=== PATIENT | female | born 1945 ===

== ENCOUNTER 2018-08-23 03:39 | Observation (INO) | payer MEDICARE, OTHER ==
--- NOTE | 2018-08-23 04:30 | ED PDOC ---
HPI: Chest Pain Time Seen by Provider: 08/23/18 04:00 Chief Complaint (Nursing): Chest Pain Chief Complaint (Provider): Chest Pain History Per: Patient History/Exam Limitations: no limitations Onset/Duration Of Symptoms: Hrs (02:00 today) Current Symptoms Are (Timing): Still Present Associated Symptoms: denies: Diaphoresis Additional Complaint(s): Adelaida Holman is a 73 year old female, with a past medical history of HTN, hypercholesterolemia, hypothyroidism and osteoporosis, who presents to the emergency department accompanied by daughter complaining of chest pain, upper back pain and left arm pain onset since 02:00 today. Daughter states patient woke up in the middle of the night complaining of pain. Patient denies any fever, chills, sweats or other medical complaints. PMD: [facility] - Cardio Past Medical History Reviewed: Historical Data, Nursing Documentation, Vital Signs Vital Signs: Last Vital Signs Temp 97.6 F 08/23/18 03:56 Pulse 138 H 08/23/18 03:56 Resp 16 08/23/18 03:56 BP 116/58 L 08/23/18 03:56 Pulse Ox 90 L 08/23/18 03:56 - Medical History PMH: HTN, Hypercholesterolemia, Hypothyroidism, Osteoporosis Denies: Chronic Kidney Disease - Surgical History Other surgeries: bypass - Family History Family History: States: Unknown Family Hx - Social History Current smoker - smoking cessation education provided: No Alcohol: None Drugs: Denies - Home Medications Home Medications: Ambulatory Orders Medication Instructions Recorded Atorvastatin [Lipitor] 10 mg PO DAILY 08/23/18 Levothyroxine [Synthroid] 75 mg PO DAILY 08/23/18 RX: Furosemide [Lasix] 20 mg PO DAILY 08/23/18 RX: Losartan Potassium [Cozaar] 100 mg PO DAILY 08/23/18 RX: amLODIPine [Norvasc] 5 mg PO DAILY 08/23/18 - Allergies Allergies/Adverse Reactions: Allergies Allergy/AdvReac Type Severity Reaction Status Date / Time No Known Allergies Allergy Verified 07/03/16 12:15 Review of Systems ROS Statement: Except As Marked, All Systems Reviewed And Found Negative Constitutional: Negative for: Fever, Chills, Sweats Cardiovascular: Positive for: Chest Pain Musculoskeletal: Positive for: Arm Pain (left), Back Pain (upper) Physical Exam - Reviewed Nursing Documentation Reviewed: Yes Vital Signs Reviewed: Yes - Physical Exam Appears: Positive for: No Acute Distress Head Exam: Positive for: ATRAUMATIC, NORMAL INSPECTION, NORMOCEPHALIC Skin: Positive for: Normal Color, Warm, Dry Eye Exam: Positive for: Normal appearance, EOMI, PERRL Neck: Positive for: Normal, Painless ROM Cardiovascular/Chest: Positive for: Regular Rate, Rhythm. Negative for: Murmur Respiratory: Positive for: Normal Breath Sounds. Negative for: Respiratory Distress Gastrointestinal/Abdominal: Positive for: Normal Exam, Soft. Negative for: Tenderness Back: Positive for: Normal Inspection. Negative for: L CVA Tenderness, R CVA Tenderness, Vertebral Tenderness Extremity: Positive for: Normal ROM (upper and lower extremities), Swelling (Slight trace edema to bilateral lower extremities). Negative for: Calf Tenderness, Deformity Neurologic/Psych: Positive for: Alert, Oriented. Negative for: Motor/Sensory Deficits - Laboratory Results Result Diagrams: 08/23/18 04:40 08/23/18 04:40 - ECG O2 Sat by Pulse Oximetry: 90 (RA) Pulse Ox Interpretation: Abnormal Medical Decision Making Medical Decision Making: Time: 04:12 Initial Impression: Chest pain rule out ACS Initial Plan: --CMP --Troponin I --CBC w/ differential --Cardizem 10 mg IVP --Reevaluation EKG shows LBBB with A-fib. Reviewed previous EKG done in 2016 that also showed a LBBB present. 06:35 -Discussed case with Dr. Sutton who was made aware and pt. will be admitted. consult placed for Dr Holman, pts bobbin dumper 07:00 -Repeat EKG shows A-fib with RVR @ 108bpm. Patient feels improved. ----- Scribe Attestation: Documented by Cedric Londono, acting as a scribe for Joseph Gong MD. Provider Scribe Attestation: All medical record entries made by the Scribe were at my direction and personally dictated by me. I have reviewed the chart and agree that the record accurately reflects my personal performance of the history, physical exam, medical decision making, and the department course for this patient. I have also personally directed, reviewed, and agree with the discharge instructions and disposition. Disposition - Clinical Impression Clinical Impression: Acute chest pain, Atrial fibrillation - Patient ED Disposition Is Patient to be Admitted: Yes Counseled Patient/Family Regarding: Studies Performed, Diagnosis - Disposition Disposition Time: 06:30 Condition: GUARDED
[2018-08-23 04:50] LABS: BASO # 0.1 K/uL (0.0-0.2); BASO % 1.1 % (0.0-2.0); EOS # 0.3 K/uL (0.0-0.7); HEMOGLOBIN 14.8 g/dL (12.0-16.0); LYMPH # 2.6 K/uL (1.0-4.3); LYMPH % 38.2 % (20.0-40.0); MEAN CELL VOLUME 80.5 fl (81.0-99.0); MEAN CORPUSCULAR HEMOGLOBIN 26.3 pg (27.0-31.0); MEAN CORPUSCULAR HGB CONC 32.7 g/dL (33.0-37.0); MEAN PLATELET VOLUME 9.2 fl (7.2-11.7); MONO # 0.4 K/uL (0.0-0.8); MONO % 6.6 % (0.0-10.0); NEUT # 3.3 K/uL (1.8-7.0); NEUT % 49.1 % (50.0-75.0); NRBC % 0.1 % (0.0-0.0); RBC 5.61 Mil/uL (3.80-5.20); RED CELL DISTRIBUTION WIDTH 14.1 % (11.5-14.5); WHITE BLOOD COUNT 6.7 K/uL (4.8-10.8)
[2018-08-23 05:02] LABS: ALB/GLOB RATIO 1.1 (1.0-2.1); ALBUMIN 4.5 g/dL (3.5-5.0); ALT/SGPT 28 U/L (9-52); AST/SGOT 26 U/L (14-36); BLOOD UREA NITROGEN 15 mg/dl (7-17); CALCIUM 9.6 mg/dL (8.4-10.2); GFR NON-AFRICAN AMERICAN > 60
--- NOTE | 2018-08-23 08:27 | RAD ---
Date of service: 08/23/2018 HISTORY: chest pain COMPARISON: Chest radiographs 07/03/2016. TECHNIQUE: Chest PA and lateral FINDINGS: LUNGS: No active pulmonary disease. PLEURA: No significant pleural effusion identified. No pneumothorax apparent. CARDIOVASCULAR: Calcific atherosclerotic changes are seen related to the thoracic aorta. Stable cardiomegaly. Borderline pulmonary vascular congestion. OSSEOUS STRUCTURES: Sternotomy wires reiterated. VISUALIZED UPPER ABDOMEN: Normal. OTHER FINDINGS: None. IMPRESSION: Borderline pulmonary vascular congestion. Stable cardiomegaly. No acute airspace disease bilaterally.
[2018-08-23] MEDS: Levothyroxine 100 MCG TAB PO SCH (08:56)
[2018-08-23] MEDS ORDERED: Digoxin 250 mcg (0.25 mg) Tab PO ONE ×2 (10:52→13:00)
--- NOTE | 2018-08-23 11:10 | CP.PCM.CON ---
History of Present Illness - History of Present Illness History of Present Illness: THE PATIENT IS A 73 YEAR OLD FEMALE WITH A HISTORY OF HYPERTENSION, HYPERLIPIDEMIA AND HYPOTHYROISISM. 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 SHE SEES DR [facility] AND HAD A STRESS TEST ABOUT 6 MONTHS AGO AND AND ECHOCARDIOGRAM ABOUT 6 MONTHS AGO ALSO. SHE NOW STATES THAT EARLY THIS MORNING SHE WOKE UP TO A RAPID AND IRREGULAR HEART BEATING SENSATION AND THIS PROMPTED HER TO GO TO THE ER. I WAS ASKED TO SEE HER BY [facility] THEY WOULD NOT BE ABLE TO BE IN TODAY AND THE PATIENT AND DAUGHTER STATED THAT THAT WAS FINE WITH THEM. THE ER PHYSICIAN WROTE THAT SHE HAD CHEST PAIN BUT UPON DETAILED QUESTIONING SHE STATES THAT IT WAS A RAPID BEATING SENSATION AND SHE ALSO FELT WHAT APPEARED TO BY A "GAS" SENSATION ALONG HER LEFT LATERAL CHEST AND HER LEFT SHOULDER BUT THAT IT IS GONE NOW. SHE DENIES ANY TYPICAL CHEST PAIN. SHE WAS GIVEN 10 MGS OF IV CARDIZEM BY THE ER PHYSICIAN AND STATES IT SLOWED HER RAPID BEATING SENSATION BUT ONLY BRIEFLY. Past Patient History - Past Social History Alcohol: None Drugs: Denies - CARDIAC Hx Hypercholesterolemia: Yes Hx Hypertension: Yes - PULMONARY Hx Respiratory Disorders: No - NEUROLOGICAL Hx Neurological Disorder: No - HEENT Hx HEENT Problems: No - RENAL Hx Chronic Kidney Disease: No - ENDOCRINE/METABOLIC Hx Hypothyroidism: Yes - HEMATOLOGICAL/ONCOLOGICAL Hx Blood Disorders: No - MUSCULOSKELETAL/RHEUMATOLOGICAL Hx Osteoporosis: Yes - PSYCHIATRIC Hx Substance Use: No - SURGICAL HISTORY Hx Surgeries: Yes Hx Cardiac Catheterization: Yes - ANESTHESIA Hx Anesthesia: Yes Hx Anesthesia Reactions: No Hx Malignant Hyperthermia: No Meds Allergies/Adverse Reactions: Allergies Allergy/AdvReac Type Severity Reaction Status Date / Time No Known Allergies Allergy Verified 07/03/16 12:15 - Medications Medications: Current Medications Enoxaparin Sodium (Lovenox) 70 mg SC Q12 [facility] Levothyroxine Sodium (Synthroid) 100 mcg PO DAILY@0630 [facility] Last Admin: 08/23/18 08:56 Dose: 100 mcg Physical Exam - Respiratory Exam Respiratory Exam: Clear to Auscultation Bilateral - Cardiovascular Exam Cardiovascular Exam: Tachycardia, Irregular Rhythm, +S1, +S2 - Extremities Exam Additional comments: NO LE EDEMA - Additional Findings Additional findings: EKG 2015 NSR, LBBB EKGS TODAY SHOW ATRIAL FIBRILLATION WITH RVR AND A LBBB TROPONIN IS NORMAL Results - Vital Signs Recent Vital Signs: Last Vital Signs Temp 98 F 08/23/18 09:01 Pulse 104 H 08/23/18 09:01 Resp 20 08/23/18 09:01 BP 137/80 08/23/18 09:01 Pulse Ox 98 08/23/18 09:01 - Labs Result Diagrams: 08/23/18 04:40 08/23/18 04:40 Labs: Laboratory Results - last 24 hr 08/23/18 08/23/18 04:40 04:40 WBC 6.7 RBC 5.61 H Hgb 14.8 Hct 45.1 MCV 80.5 L MCH 26.3 L MCHC 32.7 L RDW 14.1 Plt Count 201 MPV 9.2 Neut % (Auto) 49.1 L Lymph % (Auto) 38.2 [place] % (Auto) 6.6 Eos % (Auto) 5.0 H Baso % (Auto) 1.1 Neut # (Auto) 3.3 Lymph # (Auto) 2.6 [place] # (Auto) 0.4 Eos # (Auto) 0.3 Baso # (Auto) 0.1 Sodium 145 Potassium 3.6 Chloride 111 H Carbon Dioxide 25 Anion Gap 13 BUN 15 Creatinine 0.6 L Est GFR ( Amer) > 60 Est GFR (Non-Af Amer) > 60 Random Glucose 131 H Calcium 9.6 Total Bilirubin 0.6 AST 26 ALT 28 Alkaline Phosphatase 149 H Troponin I < 0.0120 Total Protein 8.4 H Albumin 4.5 Globulin 3.9 Albumin/Globulin Ratio 1.1 Assessment & Plan - Assessment and Plan (Free Text) Assessment: [place] ATRIAL FIBRILLATION HYPERTENSION HYPOTHYROIDISM 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
[2018-08-23 11:41] LABS: PROTHROMBIN TIME 11.2 Seconds (9.8-13.1)
[2018-08-23] MEDS: Enoxaparin 80 mg Syringe SC SCH ×2 (11:56→22:04)
[2018-08-23 13:02] LABS: TROPONIN I 0.03 ng/mL (0.00-0.120)
[2018-08-23] MEDS: Latanoprost 0.005% Opht SOUTION OU SCH (22:05)
[2018-08-24 05:27] LABS: HDL CHOLESTEROL 31 MG/DL (30-70)
[2018-08-24 05:38] LABS: LDL CHOLESTEROL 114 mg/dL (0-129)
[2018-08-24] MEDS: Levothyroxine 100 MCG TAB PO SCH (06:52)
--- NOTE | 2018-08-24 06:54 | CARD ---
APPROVED REPORT Date of service: 08/23/2018 EKG Measurement Heart [id number] <Conclusion> Normal sinus rhythm Left bundle branch block Abnormal ECG
--- NOTE | 2018-08-24 07:10 | CP.PCM.HP ---
History of Present Illness - History of Present Illness History of Present Illness: This is a 73 y/o female admitted for rapid palpitation and noted to be in rapid atrial fibrillation. She has a hx of HTN hypothyroidism hyperlipidemia and osteoporosis and recurrent palpitations and follows up with Dr Holman however never informed the Parts [employer] of her recurrent palpitations. She is currently on Losartan Lasix amlodipine atorvastatin and levothyroxine. She claims to have a remote cardiac surgery for a congenital cardiac defect. Otherwise she has been stable and compliant with her medications. She was noted to be in rapid atrial fibrillatio and respoded very well ton IV Cardizem. n Present on Admission - Present on Admission Any Indicators Present on Admission: No History of DVT/PE: No History of Uncontrolled Diabetes: No Urinary Catheter: No Decubitus Ulcer Present: No Review of Systems - Cardiovascular Cardiovascular: Chest Pain at Rest, Irregular Heart Rhythm - Respiratory Respiratory: Dyspnea Past Patient History - Past Medical History & Family History Past Medical History?: Yes - Past Social History Smoking Status: Never Smoked - CARDIAC Hx Hypercholesterolemia: Yes Hx Hypertension: Yes - PULMONARY Hx Respiratory Disorders: No - NEUROLOGICAL Hx Neurological Disorder: No - HEENT Hx HEENT Problems: No - RENAL Hx Chronic Kidney Disease: No - ENDOCRINE/METABOLIC Hx Hypothyroidism: Yes - HEMATOLOGICAL/ONCOLOGICAL Hx Blood Disorders: No - INTEGUMENTARY Hx Dermatological Problems: No - MUSCULOSKELETAL/RHEUMATOLOGICAL Hx Musculoskeletal Disorders: No - GASTROINTESTINAL Hx Gastrointestinal Disorders: No - GENITOURINARY/GYNECOLOGICAL Hx Genitourinary Disorders: No - PSYCHIATRIC Hx Substance Use: No - SURGICAL HISTORY Hx Surgeries: Yes Hx Cardiac Catheterization: Yes Other/Comment: Open Heart Surgery to repair congenital anomaly - ANESTHESIA Hx Anesthesia: Yes Hx Anesthesia Reactions: No Hx Malignant Hyperthermia: No Meds Allergies/Adverse Reactions: Allergies Allergy/AdvReac Type Severity Reaction Status Date / Time No Known Allergies Allergy Verified 07/03/16 12:15 Physical Exam - Head Exam Head Exam: NORMAL INSPECTION - Eye Exam Eye Exam: Normal appearance - ENT Exam ENT Exam: Mucous Membranes Moist - Respiratory Exam Respiratory Exam: Clear to Auscultation Bilateral - Cardiovascular Exam Cardiovascular Exam: Irregular Rhythm - GI/Abdominal Exam GI & Abdominal Exam: Normal Bowel Sounds - Neurological Exam Neurological exam: CN II-XII Intact, Oriented x3 Results - Vital Signs Recent Vital Signs: Last Vital Signs Temp 98.9 F 08/24/18 05:27 Pulse 77 08/24/18 05:27 Resp 18 08/24/18 05:27 BP 132/85 08/24/18 05:27 Pulse Ox 98 08/24/18 05:27 - Labs Result Diagrams: 08/23/18 04:40 08/23/18 04:40 Labs: Laboratory Results - last 24 hr 08/23/18 08/23/18 08/23/18 04:40 11:15 12:32 PT 11.2 INR 1.0 APTT 34.0 Sodium 145 Potassium 3.6 Chloride 111 H Carbon Dioxide 25 Anion Gap 13 BUN 15 Creatinine 0.6 L Est GFR ( Amer) > 60 Est GFR (Non-Af Amer) > 60 Random Glucose 131 H Calcium 9.6 Total Bilirubin 0.6 AST 26 ALT 28 Alkaline Phosphatase 149 H Troponin I < 0.0120 0.0300 Total Protein 8.4 H Albumin 4.5 Globulin 3.9 Albumin/Globulin Ratio 1.1 Triglycerides Cholesterol LDL Cholesterol Direct HDL Cholesterol TSH 3rd Generation 2.45 2.16 Digoxin 08/23/18 08/24/18 08/24/18 19:36 04:55 04:55 PT INR APTT Sodium Potassium Chloride Carbon Dioxide Anion Gap BUN Creatinine Est GFR ( Amer) Est GFR (Non-Af Amer) Random Glucose Calcium Total Bilirubin AST ALT Alkaline Phosphatase Troponin I 0.0350 Total Protein Albumin Globulin Albumin/Globulin Ratio Triglycerides 172 H Cholesterol 172 LDL Cholesterol Direct 114 HDL Cholesterol 31 TSH 3rd Generation Digoxin 0.7 L Assessment & Plan (1) Atrial fibrillation Status: Acute (2) Chest pain Status: Acute (3) Hypertension Status: Acute (4) Hyperlipidemia Status: Acute (5) Paroxysmal atrial fibrillation Status: Acute - Assessment and Plan (Free Text) Plan: Cont meds Cont tx Cont monitor telemetry cardiology eval ECHO Discussed with primary [employer] Dr Mcgarry will start with [place] will switch amlodipine with B carlie
[2018-08-24] MEDS ORDERED: Levothyroxine 75 MCG TAB PO SCH (09:00)
[2018-08-24] MEDS: Enoxaparin 80 mg Syringe SC SCH (09:16)
--- NOTE | 2018-08-24 11:50 | CP.PCM.PN ---
Subjective - Date & Time of Evaluation Date of Evaluation: 08/24/18 Time of Evaluation: 11:30 - Subjective Subjective: NO CHEST PAIN OR SOB NO FURTHER PALPITATIONS Objective - Vital Signs/Intake and Output Vital Signs (last 24 hours): Temp Pulse Resp BP Pulse Ox 97.9 F 57 L 20 146/62 94 L 08/24/18 09:24 08/24/18 09:24 08/24/18 09:24 08/24/18 09:24 08/24/18 09:24 - Medications Medications: Current Medications Amlodipine Besylate (Norvasc) 5 mg PO DAILY [facility] Atorvastatin Calcium (Lipitor) 10 mg PO DAILY [facility] Last Admin: 08/24/18 09:17 Dose: 10 mg Atorvastatin Calcium (Lipitor) 10 mg PO DAILY [facility] Last Admin: 08/24/18 09:17 Dose: Not Given Enoxaparin Sodium (Lovenox) 70 mg SC Q12 [facility] Last Admin: 08/24/18 09:16 Dose: 70 mg Furosemide (Lasix) 20 mg PO DAILY [facility] Last Admin: 08/24/18 09:17 Dose: 20 mg Latanoprost (Xalatan Opht) 1 drop OU HS [facility] Last Admin: 08/23/18 22:05 Dose: 1 drop Levothyroxine Sodium (Synthroid) 100 mcg PO DAILY@0630 [facility] Last Admin: 08/24/18 06:52 Dose: 100 mcg Losartan Potassium (Cozaar) 100 mg PO DAILY [facility] Last Admin: 08/24/18 09:16 Dose: 100 mg - Labs Labs: 08/23/18 04:40 08/23/18 04:40 PT 11.2 Seconds (9.8-13.1) 08/23/18 11:15 INR 1.0 08/23/18 11:15 APTT 34.0 Seconds (25.6-37.1) 08/23/18 11:15 - Respiratory Exam Respiratory Exam: Clear to Ausculation Bilateral - Cardiovascular Exam Cardiovascular Exam: REGULAR RHYTHM, +S1, +S2, Murmur - Extremities Exam Extremities Exam: Normal Inspection - Additional Findings Additional findings: EKG THIS AM NSR, LBBB DIG LEVEL 0.7 ECHO CONCENTRIC LVH, AV CALCIFICATION WITH MODERATE TO SEVERE AR, MILD MR, MILD TR, NO ASD SEEN(MY UNOFFICIAL READING) Assessment and Plan - Assessment and Plan (Free Text) Assessment: S/P ATRIAL FIBRILLATION-NOW IN NSR HYPERTENSION HYPERLIPIDEMIA PRIOR OHS Plan: CONTINUE DIGOXIN, LOSARTAN, FUROSEMIDE LOWER LOVENOX TO 40 MGS DAILY AND ADD ASA 325 MGS DAILY WILL STOP AMLODIPINE AND BEGIN A BETA AMBREEN FOR BOTH HYPERTENSION AND TO TRY TO KEEP IN NSR I SPOKE TO DR CAMPBELL AGAIN TODAY AND ASKED HIM ABOUT HER PRIOR OHS, ?HOLE IN THE HEART, AND ABOUT HER AR-HE WILL REVIEW HER CHART AND LET ME KNOW I WOULD KEEP HER IN THE HOSPITAL AT LEAST ONE MORE NIGHT TO MAKE SURE SHE STAYS IN SINUS RHYTHM
[2018-08-24] MEDS: Aspirin 325 mg EC Tablets PO SCH (13:35)
[2018-08-24] MEDS: Digoxin 250 mcg (0.25 mg) Tab PO SCH (18:24)
--- NOTE | 2018-08-24 20:17 | CARD ---
APPROVED REPORT Date of service: 08/24/2018 EXAM: Two-dimensional and M-mode echocardiogram with Doppler and color Doppler. Other Information Quality : GoodRhythm : NSR INDICATION Atrial Fibrillation Surgery/Intervention CABD DIMENSIONS IVSd1.47 (0.7-1.1cm)LVDd5.11 (3.9-5.9cm) LVOT Diameter2.28 (1.8-2.4cm)PWd1.49 (0.7-1.1cm) IVSs2.13 (0.8-1.2cm)LVDs2.94 (2.5-4.0cm) FS (%) 42.4 %PWs1.95 (0.8-1.2cm) M-Mode DIMENSIONS Left Atrium (MM)3.62 (2.5-4.0cm)IVSd1.47 (0.7-1.1cm) Aortic Root3.74 (2.2-3.7cm)LVDd5.47 (4.0-5.6cm) Aortic Cusp Exc.2.03 (1.5-2.0cm)PWd1.29 (0.7-1.1cm) IVSs2.44 cmFS (%) 63 % LVDs2.03 (2.0-3.8cm)PWs2.15 cm Aortic Valve AoV Peak Szwfmazw924.6cm/sAoV VTI84.5cmAO Peak GR.63mmHg LVOT Peak Asecbdri216.2cm/sLVOT VTI42.16cmAO Mean GR.38mmHg MARQUES (VMAX)1.54tz0CKL (VTI)1.94iu9KU P 1/2 Tyuj306po Mitral Valve MV E Cflbyszk88.2cm/sMV DECEL [id number] A Xhzxhpnw519.0cm/s MV JSM65buM/A ratio0.5MVA (PHT)2.91cm2 TDI Lateral E' Peak V7.82cm/sMedial E' Peak V3.10cm/sE/Lateral E'7.1 E/Medial E'17.8 Tricuspid Valve TR Peak Xujlpfsz608xm/sRAP NPSWIEYC52gkPjFI Peak Gr.31mmHg WGWJ96iuHe LEFT VENTRICLE The left ventricle is normal size. There is mild concentric left ventricular hypertrophy. The left ventricular systolic function is normal. The estimated ejection fraction is 60-65% No regional wall motion abnormalities noted.. Transmitral Doppler flow pattern is Grade I-abnormal relaxation pattern. No left ventricle thrombus noted on this study. There is no ventricular septal defect visualized. There is no left ventricular aneurysm. There is no mass noted in the left ventricle. RIGHT VENTRICLE The right ventricle is normal size. There is normal right ventricular wall thickness. The right ventricular systolic function is normal. ATRIA The left atrium is mildly dilated. The right atrium size is normal. The interatrial septum is intact with no evidence for an atrial septal defect. AORTIC VALVE The aortic valve is normal in structure. Moderate aortic regurgitation is present. There is mild aortic valvular stenosis. There is no aortic valvular vegetation. MITRAL VALVE The mitral valve is normal in structure. There is no evidence of mitral valve prolapse. There is no mitral valve stenosis. There is mild mitral valve regurgitation noted. TRICUSPID VALVE The tricuspid valve is normal in structure. There is mild tricuspid valve regurgitation noted. RVSP is calculated at 41 mm Hg. There is no tricuspid valve prolapse or vegetation. There is no tricuspid valve stenosis. PULMONIC VALVE The pulmonary valve is normal in structure. There is no pulmonic valvular regurgitation. There is no pulmonic valvular stenosis. GREAT VESSELS The aortic root is normal in size. The ascending aorta is normal in size. The pulmonary artery is normal. The IVC is normal in size and collapses >50% with inspiration. PERICARDIAL EFFUSION There is no pericardial effusion. There is no pleural effusion. <Conclusion> There is mild concentric left ventricular hypertrophy. The estimated ejection fraction is 60-65% Transmitral Doppler flow pattern is Grade I-abnormal relaxation pattern. Moderate aortic regurgitation is present. There is mild aortic valvular stenosis. There is mild mitral valve regurgitation noted. There is mild tricuspid valve regurgitation noted. RVSP is calculated at 41 mm Hg.
[2018-08-24] MEDS: Latanoprost 0.005% Opht SOUTION OU SCH (21:57)
[2018-08-25 05:10] VITALS: RESP 20
[2018-08-25] MEDS: Levothyroxine 100 MCG TAB PO SCH (06:10)
[2018-08-25] MEDS ORDERED: Enoxaparin 40 mg Syringe SC SCH (09:00)
--- NOTE | 2018-08-25 09:14 | CP.PCM.PN ---
Subjective - Date & Time of Evaluation Date of Evaluation: 08/25/18 Time of Evaluation: 09:00 - Subjective Subjective: NO CHEST PAIN, PALPITATIONS OR SOB Objective - Vital Signs/Intake and Output Vital Signs (last 24 hours): Temp Pulse Resp BP Pulse Ox 97.9 F 77 20 136/70 94 L 08/25/18 08:15 08/25/18 08:15 08/25/18 08:15 08/25/18 08:15 08/25/18 08:15 - Medications Medications: Current Medications Aspirin (Ecotrin) 325 mg PO DAILY [facility] Last Admin: 08/24/18 13:35 Dose: 325 mg Atorvastatin Calcium (Lipitor) 10 mg PO DAILY [facility] Last Admin: 08/24/18 09:17 Dose: 10 mg Digoxin (Lanoxin) 0.25 mg PO DAILY [facility] Last Admin: 08/24/18 18:24 Dose: 0.25 mg Enoxaparin Sodium (Lovenox) 40 mg SC DAILY [facility]; Protocol Furosemide (Lasix) 20 mg PO DAILY [facility] Last Admin: 08/24/18 09:17 Dose: 20 mg Latanoprost (Xalatan Opht) 1 drop OU HS [facility] Last Admin: 08/24/18 21:57 Dose: 1 drop Levothyroxine Sodium (Synthroid) 100 mcg PO DAILY@0630 [facility] Last Admin: 08/25/18 06:10 Dose: 100 mcg Losartan Potassium (Cozaar) 100 mg PO DAILY [facility] Last Admin: 08/24/18 09:16 Dose: 100 mg Metoprolol Tartrate (Lopressor) 12.5 mg PO Q12 [facility] Last Admin: 08/24/18 21:55 Dose: 12.5 mg - Labs Labs: 08/23/18 04:40 08/23/18 04:40 PT 11.2 Seconds (9.8-13.1) 08/23/18 11:15 INR 1.0 08/23/18 11:15 APTT 34.0 Seconds (25.6-37.1) 08/23/18 11:15 - Respiratory Exam Respiratory Exam: Clear to Ausculation Bilateral - Cardiovascular Exam Cardiovascular Exam: REGULAR RHYTHM, +S1, +S2 - Extremities Exam Extremities Exam: Normal Inspection - Additional Findings Additional findings: [employer] NSR Assessment and Plan - Assessment and Plan (Free Text) Assessment: S/P ATRIAL FIBRILLATION HYPERTENSION HYPERLIPIDEMIA AORTIC REGURGITATION PRIOR OHS Plan: THE PATIENT WILL BE DISCHARGED TODAY CONTINUE DIGOXIN, METOPROLOL, LOSARTAN, ASPIRIN AND ATORVASTATIN THE PATIENT WILL SEE [facility] FOR CARDIAC FU
[2018-08-25] MEDS: Aspirin 325 mg EC Tablets PO SCH (09:22)
[2018-08-25] MEDS: Digoxin 250 mcg (0.25 mg) Tab PO SCH (09:23)
[2018-08-25 09:28] VITALS: PULSE 77
--- NOTE | 2018-08-25 11:30 | CP.PCM.PCO ---
Assessment & Plan - Assessment and Plan (Free Text) Assessment: pt. doing well this morning denies sob, cp, palpitations pt. cleared for discharge to home today by -recommendations to meds for discharge ( see reconciliation) , no anticoagulation at this time pt. is to f/u with in 1 week E rx for all meds provided
[2018-08-25 12:00] VITALS: BP 114/58; PULSE 55; TEMP 97.4; O2SAT 94
== END 2018-08-25 17:00 | disposition home or self-care (01) ==
LOC: H.ER 03:39 → H.ERHOLD 06:34 → H.TEL 08-24 01:18
PROVIDERS: ADMIT Family Medicine; ATTEND Family Medicine
DX: I48.0 Paroxysmal atrial fibrillation (principal); I10 Essential (primary) hypertension; E78.00 Pure hypercholesterolemia, unspecified; E03.9 Hypothyroidism, unspecified; M81.0 Age-related osteoporosis without current pathological fracture; E78.5 Hyperlipidemia, unspecified; I35.1 Nonrheumatic aortic (valve) insufficiency
CPT/HCPCS: 36415; 71046; 80053; 80061; 80162; 84443; 84484; 85025; 85610; 85730; 93005; 93306; 96372; 96374; 99285; G0378; J1650

== ENCOUNTER 2019-03-04 10:43 | Inpatient (IN) | payer OTHER ==
[2019-03-04 10:44] VITALS: PULSE 77
[2019-03-04 11:00] VITALS: BMI 31.3
--- NOTE | 2019-03-04 11:47 | ED PDOC ---
HPI: SOB/CHF/COPD Time Seen by Provider: 03/04/19 11:24 Chief Complaint (Nursing): Shortness Of Breath Chief Complaint (Provider): Dyspnea History Per: Patient History/Exam Limitations: no limitations Onset/Duration Of Symptoms: Days (yesterday evening) Additional Complaint(s): Pt. with dyspnea since yesterday. Also weakness in her legs. Has trouble sleeping laying down. No chest pain. Has pain to the epigastric and LUQ. No lower abd pain. No nausea, vomit, diarrhea, headaches, dizziness. No palpitations. Not on any blood thinners. No fever. No cough. Has had similar in the past. Past Medical History Reviewed: Nursing Documentation, Vital Signs Vital Signs: Last Vital Signs Temp 97.8 F 03/04/19 10:59 Pulse 85 03/04/19 10:59 Resp 16 03/04/19 10:59 BP 148/75 03/04/19 10:59 Pulse Ox 95 03/04/19 10:59 Primary Care Provider: Gisselle Hammond - Medical History PMH: Atrial Fibrillation, CHF, HTN, Hypercholesterolemia, Hypothyroidism, Osteoporosis Denies: HIV, Chronic Kidney Disease - Surgical History Other surgeries: open heart sugery for tissue removal - Family History Family History: States: Unknown Family Hx - Living Arrangements Living Arrangements: With Family - Home Medications Home Medications: Ambulatory Orders Medication Instructions Recorded Atorvastatin [Lipitor] 10 mg PO DAILY 08/23/18 Furosemide [Lasix] 20 mg PO DAILY 08/23/18 Losartan Potassium [Cozaar] 100 mg PO DAILY 08/23/18 Latanoprost 0.005% Opht [Xalatan 1 drop OU HS #1 bottle 08/25/18 Opht] Levothyroxine [Synthroid] 100 mcg PO DAILY@0630 #30 tab 08/25/18 Apixaban [Eliquis] 5 mg PO Q12 03/04/19 Diltiazem HCl [Diltiazem 24Hr ER] 180 mg PO DAILY 03/04/19 Timolol 0.5% Ophth [Timoptic 0.5% 1 drop BOTHEYES Q12 03/04/19 Ophth Soln] - Allergies Allergies/Adverse Reactions: Allergies Allergy/AdvReac Type Severity Reaction Status Date / Time No Known Allergies Allergy Verified 03/04/19 11:16 Review of Systems ROS Statement: Except As Marked, All Systems Reviewed And Found Negative Constitutional: Positive for: Weakness Cardiovascular: Positive for: Orthopnea Respiratory: Positive for: Shortness of Breath Gastrointestinal: Positive for: Abdominal Pain Neurological: Positive for: Weakness Physical Exam - Reviewed Nursing Documentation Reviewed: Yes Vital Signs Reviewed: Yes - Physical Exam Appears: Positive for: Uncomfortable Head Exam: Positive for: ATRAUMATIC, NORMAL INSPECTION, NORMOCEPHALIC Skin: Positive for: Normal Color, Warm, DRY Eye Exam: Positive for: EOMI, Normal appearance, PERRL ENT: Positive for: Normal ENT Inspection Neck: Positive for: Normal, Painless ROM, Supple Cardiovascular/Chest: Positive for: Irregularly Irregular Respiratory: Positive for: Decreased Breath Sounds, Other (coarse mild b/l). Negative for: Accessory Muscle Use Gastrointestinal/Abdominal: Positive for: Soft, Tenderness (epigastric and LUQ) Back: Positive for: Normal Inspection. Negative for: L CVA Tenderness, R CVA Tenderness Extremity: Positive for: Normal ROM. Negative for: Tenderness, Pedal Edema Neurological/Psych: Positive for: Awake, Alert, Normal Tone, enrollment specialist II-XII. Negative for: Motor/Sensory Deficits, Facial Droop - Laboratory Results Result Diagrams: 03/04/19 12:25 03/04/19 12:25 Interpretation Of Abn Labs: probnp elevation - ECG ECG: Positive for: Interpreted By Me, Viewed By Me Interpretation Of Abn EKG: afib similar to old O2 Sat by Pulse Oximetry: 95 Pulse Ox Interpretation: Normal - Radiology X-Ray: Interpreted by Me, Viewed By Me X-Ray Interpretation: Other (vascular congestion) - Progress ED Course And Treament: 1200: Stable. Continue meds. Getting better. 1326: Stable. AAOx3. Pain free. On eliquis so will hold ASA. Spoke with Dr. Sutton. Will admit. - Critical Care Total Time (In Min): 30 Documented Critical Care: Time excludes all time spent performint seperately billable procedures Disposition - Clinical Impression Clinical Impression: CHF exacerbation - Patient ED Disposition Is Patient to be Admitted: Yes Counseled Patient/Family Regarding: Studies Performed, Diagnosis - Disposition Disposition Time: 13:30 Condition: FAIR - Pt Status Changed To: Hospital Disposition Of: Inpatient - Admit Certification Admit to Inpatient:: After my assessment, the patient will require hospitalization for at least two midnights. This is because of the severity of symptoms shown, intensity of services needed, and/or the medical risk in this patient being treated as an outpatient. - POA Present On Arrival: None
[2019-03-04] MEDS ORDERED: Albuterol-Ipratrop 3 mg / 0.5 (3 ml) UD INH STA ×2 (11:56→14:51)
[2019-03-04] MEDS ORDERED: Albuterol-Ipratrop 3 mg / 0.5 (3 ml) UD IH STA (11:56)
[2019-03-04] MEDS ORDERED: Albuterol-Ipratrop 3 mg / 0.5 (3 ml) UD ONE (12:04)
[2019-03-04 12:16] LABS: ABG ALLEN TEST YES; ARTERIAL BLOOD GAS HCO3 26.1 mmol/L (21-28); ARTERIAL BLOOD GAS O2 SAT 99.3 % (95-98); ARTERIAL BLOOD GAS PCO2 39 mm/Hg (35-45); ARTERIAL BLOOD GAS PH 7.43 (7.35-7.45); ARTERIAL BLOOD GAS PO2 77 mm/Hg (80-100); ARTERIAL BLOOD GAS TCO2 27.1 mmol/L (22-28)
[2019-03-04 12:46] LABS: BASO # 0.1 K/uL (0.0-0.2); EOS # 0.2 K/uL (0.0-0.7); EOS % 2.1 % (0.0-4.0); HEMOGLOBIN 14.9 g/dL (12.0-16.0); LYMPH # 2.3 K/uL (1.0-4.3); LYMPH % 21.9 % (20.0-40.0); MEAN CELL VOLUME 80.5 fl (81.0-99.0); MEAN CORPUSCULAR HEMOGLOBIN 26.4 pg (27.0-31.0); MEAN CORPUSCULAR HGB CONC 32.8 g/dL (33.0-37.0); MEAN PLATELET VOLUME 9.7 fl (7.2-11.7); MONO # 0.6 K/uL (0.0-0.8); MONO % 5.8 % (0.0-10.0); NEUT # 7.2 K/uL (1.8-7.0); NEUT % 69.2 % (50.0-75.0); NRBC % 0.2 % (0.0-0.0); RBC 5.63 Mil/uL (3.80-5.20); RED CELL DISTRIBUTION WIDTH 15.6 % (11.5-14.5); WHITE BLOOD COUNT 10.5 K/uL (4.8-10.8)
[2019-03-04 12:49] LABS: INR 1.4
[2019-03-04 12:52] LABS: PARTIAL THROMBOPLASTIN TIME 36.3 Seconds (25.6-37.1)
[2019-03-04 12:56] LABS: ALB/GLOB RATIO 1.3 (1.0-2.1); ALBUMIN 4.5 g/dL (3.5-5.0); ALT/SGPT 51 U/L (9-52); AST/SGOT 44 U/L (14-36); BLOOD UREA NITROGEN 17 mg/dl (7-17); CALCIUM 9.1 mg/dL (8.4-10.2); GFR NON-AFRICAN AMERICAN > 60; LIPASE 75 U/L (23-300)
[2019-03-04 13:08] LABS: B-TYPE NATRIURETIC PEPTIDE 1780 pg/ml (0-900)
[2019-03-04] MEDS ORDERED: Sodium Chloride 0.9% 50 ML IV ONE (13:39)
[2019-03-04] MEDS ORDERED: Iohexol 300 100 ML IJ ONE (13:39)
--- NOTE | 2019-03-04 15:20 | RAD ---
Date of service: 03/04/2019 HISTORY: dyspnea COMPARISON: Comparison chest dated 08/23/2018. TECHNIQUE: 1 view obtained. FINDINGS: LUNGS: Diffuse bilateral interstitial infiltrates likely representing mild pulmonary venous congestion. Questionable small bilateral effusions. PLEURA: As above. No pneumothorax apparent. CARDIOVASCULAR: Cardiomegaly. Sternotomy wires again noted. Redemonstrated is aortic atherosclerotic calcification present. OSSEOUS STRUCTURES: No significant abnormalities. VISUALIZED UPPER ABDOMEN: Normal. OTHER FINDINGS: None. IMPRESSION: Diffuse bilateral interstitial infiltrates likely representing mild pulmonary venous congestion. Questionable small bilateral effusions. Cardiomegaly.
--- NOTE | 2019-03-04 15:39 | CT ---
Date of service: 03/04/2019 PROCEDURE: CT Abdomen and Pelvis with contrast HISTORY: pain COMPARISON: None. TECHNIQUE: Contrast dose: 95 mL Omnipaque 300 Radiation dose: Total exam DLP = 817.93 mGy-cm. This CT exam was performed using one or more of the following dose reduction techniques: Automated exposure control, adjustment of the mA and/or kV according to patient size, and/or use of iterative reconstruction technique. FINDINGS: LOWER THORAX: Multifocal bilateral lower lobe infiltrates. Small hiatal hernia. Cardiomegaly. Sternotomy wires. LIVER: Examination of the abdomen is technically limited. Despite appropriate delay between contrast administration and scanning, the patient is imaged in the arterial phase of enhancement. Normal size, contour and attenuation. No mass. No biliary dilatation. GALLBLADDER AND BILE DUCTS: Unremarkable. PANCREAS: Unremarkable. No gross lesion or ductal dilatation. SPLEEN: Unremarkable. ADRENALS: Unremarkable. No mass. KIDNEYS AND URETERS: Mid left renal cortical cyst, 5.6 cm. This measures 13 Hounsfield units, consistent with cyst. No other mass. No renal calculus or hydronephrosis. VASCULATURE: Unremarkable. No aortic aneurysm. There is atherosclerotic calcification of the abdominal aorta. BOWEL: Sigmoid diverticulosis. No evidence of diverticulitis. No bowel obstruction. No other abnormal bowel loops are identified. APPENDIX: Normal appendix. PERITONEUM: Unremarkable. No free fluid. No free air. LYMPH NODES: Unremarkable. No enlarged lymph nodes. BLADDER: Unremarkable. REPRODUCTIVE: Normal uterus BONES: No acute fracture. OTHER FINDINGS: None. IMPRESSION: Bilateral lower lobe infiltrates. Possible pneumonia. Sigmoid diverticulosis without evidence of diverticulitis. Small hiatal hernia. Cardiomegaly. Sternotomy wires..
[2019-03-04] MEDS ORDERED: Azithromycin 500 MG in Sodium Chloride 0.9% 250 ML IV STA (17:19)
--- NOTE | 2019-03-04 20:02 | CARD ---
APPROVED REPORT Date of service: 03/04/2019 EKG Measurement Heart [id number] <Conclusion> Atrial fibrillation Left bundle branch block Abnormal ECG
[2019-03-04] MEDS: Metoprolol Succinate 25 mg XL Tab PO SCH (20:42)
[2019-03-04] MEDS: Latanoprost 0.005% Opht SOUTION OU SCH (21:48)
[2019-03-05] MEDS: Levothyroxine 100 MCG TAB PO SCH (06:51)
[2019-03-05 07:22] LABS: HEMOGLOBIN 14.6 g/dL (12.0-16.0); MEAN CORPUSCULAR HEMOGLOBIN 25.9 pg (27.0-31.0); MEAN CORPUSCULAR HGB CONC 32.4 g/dL (33.0-37.0); RBC 5.64 Mil/uL (3.80-5.20); RED CELL DISTRIBUTION WIDTH 15.5 % (11.5-14.5); WHITE BLOOD COUNT 11.4 K/uL (4.8-10.8)
[2019-03-05 07:33] LABS: ALB/GLOB RATIO 1.2 (1.0-2.1); ALBUMIN 4.4 g/dL (3.5-5.0); ALT/SGPT 57 U/L (9-52); AST/SGOT 41 U/L (14-36); BLOOD UREA NITROGEN 22 mg/dl (7-17); CALCIUM 9.1 mg/dL (8.4-10.2); GFR NON-AFRICAN AMERICAN > 60
[2019-03-05 07:42] LABS: B-TYPE NATRIURETIC PEPTIDE 4230 pg/ml (0-900)
[2019-03-05] MEDS: diltiaZEM 180 mg/24 Hours CD Cap PO SCH (08:19)
[2019-03-05] MEDS: Potassium Chloride 20 mEq ER Tab PO SCH ×2 (08:20→16:46)
[2019-03-05] MEDS: Metoprolol Succinate 25 mg XL Tab PO SCH (08:20)
[2019-03-05] MEDS ORDERED: DILTIAZEM HCL 180 MG PO SCH (09:00)
--- NOTE | 2019-03-05 13:16 | CARD ---
APPROVED REPORT Date of service: 03/05/2019 EXAM: Two-dimensional and M-mode echocardiogram with Doppler and color Doppler. Other Information Quality : GoodRhythm : NSR INDICATION Congestive Heart Failure 2D DIMENSIONS IVSd2.30 (0.7-1.1cm)LVDd4.14 (3.9-5.9cm) LVOT Diameter2.29 (1.8-2.4cm)PWd1.38 (0.7-1.1cm) IVSs2.18 (0.8-1.2cm)LVDs3.11 (2.5-4.0cm) FS (%) 24.9 %PWs1.80 (0.8-1.2cm) M-Mode DIMENSIONS Left Atrium (MM)4.65 (2.5-4.0cm)IVSd1.82 (0.7-1.1cm) Aortic Root3.21 (2.2-3.7cm)LVDd4.91 (4.0-5.6cm) Aortic Cusp Exc.2.18 (1.5-2.0cm)PWd1.44 (0.7-1.1cm) IVSs1.88 cmFS (%) 28 % LVDs3.56 (2.0-3.8cm)PWs1.82 cm Aortic Valve AoV Peak Oqwpudiv745.3cm/sAoV VTI54.7cmAO Peak GR.37mmHg LVOT Peak Lmpjyrbp272.8cm/sLVOT VTI29.41cmAO Mean GR.22mmHg MARQUES (VMAX)1.96is2KMY (VTI)1.21la4AV P 1/2 Ngso429zp Mitral Valve E/A ratio0.0 TDI E/Lateral E'0.0E/Medial E'0.0 Tricuspid Valve TR Peak Fzfwsdpg192ub/sRAP [id number] Peak Gr.25mmHg [id number] LEFT VENTRICLE The left ventricle is normal size. There is mild concentric left ventricular hypertrophy with sigmoid septum. The left ventricular systolic function is low normal. The estimated ejection fraction is 50-55% No regional wall motion abnormalities noted.. The left ventricular diastolic function cannot be assessed due to underlying atrial fibrillation. No left ventricle thrombus noted on this study. There is no ventricular septal defect visualized. There is no left ventricular aneurysm. There is no mass noted in the left ventricle. RIGHT VENTRICLE The right ventricle is normal size. There is normal right ventricular wall thickness. The right ventricular systolic function is normal. ATRIA The left atrium is moderately dilated. The right atrium size is normal. The interatrial septum is intact with no evidence for an atrial septal defect. AORTIC VALVE The aortic valve is normal in structure. Moderate aortic regurgitation is present. There is mild aortic valvular stenosis. There is no aortic valvular vegetation. MITRAL VALVE The mitral valve is normal in structure. There is no evidence of mitral valve prolapse. There is no mitral valve stenosis. There is mild to moderate mitral valve regurgitation noted. TRICUSPID VALVE The tricuspid valve is normal in structure. There is mild tricuspid valve regurgitation noted. RVSP is calculated at 32 mm Hg. There is no tricuspid valve prolapse or vegetation. There is no tricuspid valve stenosis. PULMONIC VALVE The pulmonary valve is normal in structure. There is no pulmonic valvular regurgitation. There is no pulmonic valvular stenosis. GREAT VESSELS The aortic root is normal in size. The ascending aorta is normal in size. The pulmonary artery is normal. The IVC is not visualized. PERICARDIAL EFFUSION There is no pericardial effusion. There is no pleural effusion. <Conclusion> There is mild concentric left ventricular hypertrophy with sigmoid septum. The left ventricular systolic function is low normal. The estimated ejection fraction is 50-55% The left ventricular diastolic function cannot be assessed due to underlying atrial fibrillation. The left atrium is moderately dilated. Moderate aortic regurgitation is present. There is mild aortic valvular stenosis. There is mild to moderate mitral valve regurgitation noted. There is mild tricuspid valve regurgitation noted. RVSP is calculated at 32 mm Hg. The IVC is not visualized.
[2019-03-05] MEDS ORDERED: Azithromycin 500 MG in Sodium Chloride 0.9% 250 ML IVPB SCH (21:00)
[2019-03-05] MEDS: Latanoprost 0.005% Opht SOUTION OU SCH (21:05)
--- NOTE | 2019-03-06 02:24 | CON ---
DATE: 03/05/2019 CARDIOLOGY CONSULTATION REASON FOR CONSULTATION: Shortness of breath and cough. HISTORY OF PRESENT ILLNESS: The patient is a 74-year-old female who has an open heart surgery some 22 years ago at [facility]. It is not clear what was done exactly except the fact that the patient had some corrective surgery for the heart and coronary bypass was not part of it. The patient is being followed by Dr. Holman as an outpatient. She required no coronary intervention. Following that, she had a stress test that was done last year that was normal. The patient presented because of shortness of breath, epigastric discomfort, as well as cough. The patient denies any fever or chills. SOCIAL HISTORY: Nonsmoker, nondrinker. MEDICATIONS: Zithromax 500 mg intravenously daily, Rocephin 1 g intravenously daily, Cardizem CD 180 mg once a day, Cozaar at 100 mg once a day, Eliquis 5 mg twice a day, K-Dur 20 mEq twice a day, Lasix 20 mg intravenous twice a day, Lipitor mg once a day, Synthroid 100 mcg once a day, Toprol-XL 25 mg once a day. PAST MEDICAL HISTORY: 1. Congenital heart disease, for which she required surgery at [facility] some 22 years ago or may be even more than that. 2. Hypothyroidism. 3. Atrial fibrillation which was diagnosed in 08/2018. 4. Hypertension. PHYSICAL EXAMINATION: GENERAL: The patient is an elderly female who does not appear to be in acute distress. VITAL SIGNS: Blood pressure 148/73, heart rate 83, temperature 97.8, respirations 20. HEENT: Normocephalic. CHEST: Bibasilar rhonchi. HEART: S1, S2, regular. ABDOMEN: Soft. EXTREMITIES: No edema. LABORATORY DATA: Today's hemoglobin and hematocrit 14.6 and 45.1, white count 11.4, platelet count 250,000. Today's SMA-7 is within normal limits except for a glucose of 144 and a BUN of 22. Pro-BNP is 4230. Admitting INR is 1.4. PTT is 36.3. Echocardiographic study in 08/2018 revealed mild concentric LVH with normal ejection fraction, grade 1 abnormal relaxation pattern, moderate aortic insufficiency, and mild aortic stenosis. Admitting EKG revealed atrial fibrillation at the rate of 87, left bundle-branch block. The left bundle-branch block is not a new finding. Abdomen and pelvis CT scan revealed bilateral lower lobe infiltrate, possible pneumonia, sigmoid diverticulosis without evidence of diverticulitis. Chest x-ray revealed cardiomegaly with mild CHF. ASSESSMENT: 1. Chronic atrial fibrillation. 2. Consider bilateral pneumonia. 3. Mild congestive heart failure by clinical and radiographic evidence, most likely diastolic heart failure. 4. History of surgical correction of unknown congenital heart disease some 22 years ago. RECOMMENDATIONS: Continue IV Zithromax and IV Rocephin. Please continue Cardizem at 180 mg once a day, Cozaar at 100 mg once a day, Eliquis at 5 mg twice a day, K-Dur at 20 mEq twice a day, and Lasix at 20 mg intravenous twice a day, Lipitor at mg once a day, Synthroid 100 mcg once a day, Toprol-XL 25 mg once a day. No invasive cardiac workup is indicated at this time. Consider Robitussin syrup at one teaspoonful t.i.d. Obtain the most recent stress test report from Dr. Holman's office. Mike Jenkins MD
[2019-03-06 05:44] VITALS: TEMP 97.3
[2019-03-06] MEDS: Levothyroxine 100 MCG TAB PO SCH (06:04)
[2019-03-06 08:27] VITALS: BP 139/85; PULSE 77; RESP 20; O2SAT 96
[2019-03-06] MEDS: Potassium Chloride 20 mEq ER Tab PO SCH (08:45)
[2019-03-06] MEDS: diltiaZEM 180 mg/24 Hours CD Cap PO SCH (08:45)
[2019-03-06] MEDS: Metoprolol Succinate 25 mg XL Tab PO SCH (08:46)
--- NOTE | 2019-03-06 11:29 | CP.PCM.HP ---
History of Present Illness - History of Present Illness History of Present Illness: This is a 74 y/o female admitted for CHF exacerbation. she claims that for the past few days she had progressively become SOB Denies any chest pain.However she was tachycardic Has a hx of HTN, atrial fibrillation and CHF.Hyperlipidemia and hypothyroidism Initial work up showed elevated proBNP and negative troponin. Present on Admission - Present on Admission Any Indicators Present on Admission: No History of DVT/PE: No History of Uncontrolled Diabetes: No Urinary Catheter: No Decubitus Ulcer Present: No Review of Systems - Respiratory Respiratory: Dyspnea, Chest Congestion Past Patient History - Past Medical History & Family History Past Medical History?: Yes - Past Social History Smoking Status: Never Smoked - CARDIAC Hx Cardiac Disorders: Yes - PULMONARY Hx Respiratory Disorders: No - NEUROLOGICAL Hx Neurological Disorder: No - HEENT Hx HEENT Problems: No - RENAL Hx Chronic Kidney Disease: No - ENDOCRINE/METABOLIC Hx Hypothyroidism: Yes - HEMATOLOGICAL/ONCOLOGICAL Hx Human Immunodeficiency Virus (HIV): No - INTEGUMENTARY Hx Dermatological Problems: No - MUSCULOSKELETAL/RHEUMATOLOGICAL Hx Falls: No - GASTROINTESTINAL Hx Gastrointestinal Disorders: No - GENITOURINARY/GYNECOLOGICAL Hx Genitourinary Disorders: No - PSYCHIATRIC Hx Substance Use: No - SURGICAL HISTORY Hx Surgeries: Yes Hx Cardiac Catheterization: Yes - ANESTHESIA Hx Anesthesia: Yes Hx Anesthesia Reactions: No Hx Malignant Hyperthermia: No Meds Allergies/Adverse Reactions: Allergies Allergy/AdvReac Type Severity Reaction Status Date / Time No Known Allergies Allergy Verified 03/04/19 11:16 Physical Exam - Head Exam Head Exam: NORMAL INSPECTION - Eye Exam Eye Exam: Normal appearance - ENT Exam ENT Exam: Mucous Membranes Moist - Respiratory Exam Respiratory Exam: Decreased Breath Sounds, Rales - Cardiovascular Exam Cardiovascular Exam: Irregular Rhythm - GI/Abdominal Exam GI & Abdominal Exam: Normal Bowel Sounds - Extremities Exam Additional comments: trace pitting leg edema bilateral - Neurological Exam Neurological exam: Alert, CN II-XII Intact, Oriented x3 Results - Vital Signs Recent Vital Signs: Last Vital Signs Temp 97.3 F L 03/06/19 08:27 Pulse 77 03/06/19 08:46 Resp 20 03/06/19 08:27 BP 139/85 03/06/19 08:46 Pulse Ox 96 03/06/19 08:27 - Labs Result Diagrams: 03/05/19 06:19 03/05/19 06:19 Assessment & Plan (1) CHF exacerbation Status: Acute (2) Atrial fibrillation Status: Acute (3) Hyperlipidemia Status: Acute (4) Hypothyroidism Status: Acute - Assessment and Plan (Free Text) Plan: Cont meds Fluid restriction Lasix 40 bid Con ttx Cardiology telemetry troponin check ECHO
--- NOTE | 2019-03-06 11:34 | CP.PCM.DIS ---
Provider - Provider Date of Admission: 03/04/19 13:31 Attending physician: Jone Sutton MD Consults: 03/04/19 19:07 Cardiology Consult Routine Comment: CHF Consulting Provider: Mike Jenkins Consulting Physician: Mike Jenkins Reason for Consult: CHF Time Spent in preparation of Discharge (in minutes): 30 Hospital Course - Lab Results Lab Results: Micro Results 03/04/19 12:05 Blood Blood Culture - Preliminary NO GROWTH AFTER 24 HOURS 03/04/19 12:25 Blood Blood Culture - Preliminary NO GROWTH AFTER 24 HOURS Most Recent Lab Values WBC 11.4 K/uL (4.8-10.8) H 03/05/19 06:19 RBC 5.64 Mil/uL (3.80-5.20) H 03/05/19 06:19 Hgb 14.6 g/dL (12.0-16.0) 03/05/19 06:19 Hct 45.1 % (34.0-47.0) 03/05/19 06:19 MCV 80.0 fl (81.0-99.0) L 03/05/19 06:19 MCH 25.9 pg (27.0-31.0) L 03/05/19 06:19 MCHC 32.4 g/dL (33.0-37.0) L 03/05/19 06:19 RDW 15.5 % (11.5-14.5) H 03/05/19 06:19 Plt Count 250 K/uL (130-400) 03/05/19 06:19 MPV 9.7 fl (7.2-11.7) 03/04/19 12:25 Neut % (Auto) 69.2 % (50.0-75.0) 03/04/19 12:25 Lymph % (Auto) 21.9 % (20.0-40.0) 03/04/19 12:25 Forrest % (Auto) 5.8 % (0.0-10.0) 03/04/19 12:25 Eos % (Auto) 2.1 % (0.0-4.0) 03/04/19 12:25 Baso % (Auto) 1.0 % (0.0-2.0) 03/04/19 12:25 Neut # (Auto) 7.2 K/uL (1.8-7.0) H 03/04/19 12:25 Lymph # (Auto) 2.3 K/uL (1.0-4.3) 03/04/19 12:25 Forrest # (Auto) 0.6 K/uL (0.0-0.8) 03/04/19 12:25 Eos # (Auto) 0.2 K/uL (0.0-0.7) 03/04/19 12:25 Baso # (Auto) 0.1 K/uL (0.0-0.2) 03/04/19 12:25 PT 16.0 Seconds (9.8-13.1) H 03/04/19 12: INR 1.4 03/04/19 12:25 APTT 36.3 Seconds (25.6-37.1) 03/04/19 12:25 pCO2 39 mm/Hg (35-45) 03/04/19 12:03 pO2 77 mm/Hg (80-100) L 03/04/19 12:03 HCO3 26.1 mmol/L (21-28) 03/04/19 12:03 ABG pH 7.43 (7.35-7.45) 03/04/19 12:03 ABG Total CO2 27.1 mmol/L (22-28) 03/04/19 12:03 ABG O2 Saturation 99.3 % (95-98) H 03/04/19 12:03 ABG Base Excess 1.5 mmol/L (-2.0-3.0) 03/04/19 12:03 Jovani Test Yes 03/04/19 12:03 ABG Potassium 3.9 mmol/L (3.6-5.2) 03/04/19 12:03 A-a O2 Difference 24.0 mm/Hg 03/04/19 12:03 Sodium 139.0 mmol/L (132-148) 03/04/19 12:03 Chloride 109.0 mmol/L (98-107) H 03/04/19 12:03 Glucose 108 mg/dL (65-105) H 03/04/19 12:03 Lactate 1.1 mmol/L (0.7-2.1) 03/04/19 12:03 FiO2 21.0 % 03/04/19 12:03 Sodium 143 mmol/l (132-148) 03/05/19 06:19 Potassium 3.8 MMOL/L (3.6-5.0) 03/05/19 06:19 Chloride 104 mmol/L (98-107) 03/05/19 06:19 Carbon Dioxide 29 mmol/L (22-30) 03/05/19 06:19 Anion Gap 14 (10-20) 03/05/19 06:19 BUN 22 mg/dl (7-17) H 03/05/19 06:19 Creatinine 0.7 mg/dl (0.7-1.2) 03/05/19 06:19 Est GFR ( Amer) > 60 03/05/19 06:19 Est GFR (Non-Af Amer) > 60 03/05/19 06:19 Random Glucose 144 mg/dL (65-105) H 03/05/19 06:19 Calcium 9.1 mg/dL (8.4-10.2) 03/05/19 06:19 Total Bilirubin 0.6 mg/dl (0.2-1.3) 03/05/19 06:19 AST 41 U/L (14-36) H 03/05/19 06:19 ALT 57 U/L (9-52) H 03/05/19 06:19 Alkaline Phosphatase 100 U/L (38-126) 03/05/19 06:19 Troponin I < 0.0120 ng/mL (0.00-0.120) 03/04/19 12:25 NT-Pro-B Natriuret Pep 4230 pg/ml (0-900) H 03/05/19 06:19 Total Protein 7.9 G/DL (6.3-8.2) 03/05/19 06:19 Albumin 4.4 g/dL (3.5-5.0) 03/05/19 06:19 Globulin 3.5 gm/dL (2.2-3.9) 03/05/19 06:19 Albumin/Globulin Ratio 1.2 (1.0-2.1) 03/05/19 06:19 Lipase 75 U/L (23-300) 03/04/19 12:25 Arterial Blood Potassium 3.9 mmol/L (3.6-5.2) 03/04/19 12:03 - Hospital Course Hospital Course: This is a 74 y/o female admitted for CHF excerbation. She has a hx of HTN and atrial fibrillation. Pro BNP was more than 4000. Troponin was normal. ECHO showed EF 50 to 55 % CXR showed bilateral pulm congestion. Patient was started on IV Lasix 40 bid and responded well to treatment. She was discharged in stable condition and advised follow up with her PMD and Printing Plate Clerk She was sent home on Lasix 40 bid and potassium 20 bid. She will continue all home meds. Discharge Exam - Head Exam Head Exam: ATRAUMATIC, NORMAL INSPECTION, NORMOCEPHALIC - Eye Exam Eye Exam: Normal appearance - Respiratory Exam Respiratory Exam: NORMAL BREATHING PATTERN - Cardiovascular Exam Cardiovascular Exam: Irregular Rhythm - GI/Abdominal Exam GI & Abdominal Exam: Normal Bowel Sounds - Neurological Exam Neurological exam: CN II-XII Intact - Psychiatric Exam Psychiatric exam: Normal Mood Discharge Plan - Follow Up Plan Condition: FAIR Disposition: HOME/ ROUTINE Additional Instructions: follow up with PMD and Printing Plate Clerk Rx given for Lasix 40 bid and potassium 20 BID
[2019-03-06] MEDS ORDERED: Azithromycin 500 MG in Sodium Chloride 0.9% 250 ML IVPB SCH (21:00)
--- NOTE | 2019-03-06 22:28 | PN ---
DATE: 03/06/2019 SUBJECTIVE: The patient denies chest pain. Her shortness or breath has improved. She has minimal cough. PHYSICAL EXAMINATION: VITAL SIGNS: Blood pressure 139/85, heart rate 77, temperature 97.3, and respiration 20. HEENT: Normocephalic. CHEST: Minimal wheeze or rhonchi. HEART: S1 and S2, regular. ABDOMEN: Soft. EXTREMITIES: No edema. ASSESSMENT: 1. Bilateral pneumonia. 2. Status post open heart surgery some 22 years ago at [facility] for questionable repair of cardiac defect. 3. Hypothyroidism. 4. Hypertension. 5. Chronic atrial fibrillation. RECOMMENDATIONS: Continue current intravenous Zithromax and intravenous Rocephin. Continue Cardizem at 180 mg once a day, Eliquis 5 mg twice a day, K-Dur 20 mEq twice a day and Lasix 40 mg intervenous twice a day, Lipitor 10 mg once a day, Synthroid 100 mcg once a day, Toprol-XL 25 mg once a day. The case was discussed with the primary physician Dr. Sutton. The patient can be discharged from the cardiac point on Eliquis, oral Lasix, K-Dur, Toprol-XL and Cozaar. The patient already has an appointment with her Signal Engineer, Dr. Holman on Thursday. Mike Jenkins MD
== END 2019-03-06 14:08 | disposition home or self-care (01) | DRG 291 ==
LOC: H.ER 10:43 → H.ERHOLD 13:31 → H.TEL 16:47
PROVIDERS: ADMIT Family Medicine; ATTEND Family Medicine
DX: I11.0 Hypertensive heart disease with heart failure (principal); J18.9 Pneumonia, unspecified organism; I50.31 Acute diastolic (congestive) heart failure; I48.2 Chronic atrial fibrillation; E03.9 Hypothyroidism, unspecified; E78.00 Pure hypercholesterolemia, unspecified; M81.0 Age-related osteoporosis without current pathological fracture; Z79.01 Long term (current) use of anticoagulants; Z79.890 Hormone replacement therapy